=== PATIENT | female | born 1970 ===

== ENCOUNTER 2018-06-07 19:34 | Emergency (ER) | payer BC ==
[2018-06-07 19:57] VITALS: TEMP 98.2
--- NOTE | 2018-06-07 20:16 | ED PDOC ---
Arrival/HPI - History of Present Illness Narrative History of Present Illness (Text): 06/07/18 20:13 47 y/o female, pmh including htn and dm, nkda, c/o chronic pelvic pain for 1 month. Pt. was seen by the obgyn last week, no sonogram was performed and told the patient to see her own pmd. Pt. stated that her sonogram date is 06/13/2018, can't wait this long so she come to the ER, no pain medication taken at home, no vaginal bleeding or discharge, no night sweat, no dizziness, no change in vision, no other medical or psychological complaints. <Norm Martinez - Last Filed: 06/07/18 21:48> <Jorje Crowley - Last Filed: 06/08/18 05:44> - General Chief Complaint: Female Genitourinary Time Seen by Provider: 06/07/18 20:09 Past Medical History - Provider Review Nursing Documentation Reviewed: Yes - Cardiac Hx Cardiac Disorders: Yes Hx Hypertension: Yes - Pulmonary Hx Respiratory Disorders: No - Neurological Hx Neurological Disorder: Yes Hx Headaches: Yes - HEENT Hx HEENT Disorder: No - Renal Hx Renal Disorder: No - Endocrine/Metabolic Hx Endocrine Disorders: Yes Hx Diabetes Mellitus Type 2: Yes - Hematological/Oncological Hx Blood Disorders: Yes Hx Anemia: Yes - Integumentary Hx Dermatological Disorder: No - Musculoskeletal/Rheumatological Hx Musculoskeletal Disorders: Yes Hx Arthritis: Yes - Gastrointestinal Hx Gastrointestinal Disorders: Yes Hx Gastroesophageal Reflux: Yes - Genitourinary/Gynecological Hx Genitourinary Disorders: No - Psychiatric Hx Psychophysiologic Disorder: No Hx Substance Use: No - Surgical History Hx Section: Yes (x2) Other/Comment: fibroidectomy - Anesthesia Hx Anesthesia: Yes Hx Anesthesia Reactions: No Hx Malignant Hyperthermia: No <Norm Martinez - Last Filed: 06/07/18 21:48> Family/Social History - Physician Review Nursing Documentation Reviewed: Yes Family/Social History: Unknown Family HX Smoking Status: Never Smoked Hx Alcohol Use: No Hx Substance Use: No <Norm Martinez - Last Filed: 06/07/18 21:48> Allergies/Home Meds <Norm Martinez - Last Filed: 06/07/18 21:48> <Jorje Crowley - Last Filed: 06/08/18 05:44> Allergies/Adverse Reactions: Allergies No Known Allergies Allergy (Verified 06/07/18 19:46) Home Medications: Home Meds Medication Instructions Recorded Confirmed Sitagliptin Phos/Metformin HCl 50 - 1,000 mg PO BID 08/06/17 06/07/18 [Janumet 50-1,000 mg Tablet] Review of Systems - Review of Systems Constitutional: absent: Fatigue, Fevers Eyes: absent: Vision Changes ENT: absent: Hearing Changes Respiratory: absent: SOB, Cough Cardiovascular: absent: Chest Pain Gastrointestinal: absent: Abdominal Pain, Nausea, Vomiting Genitourinary Female: Other (pelvic pain) Skin: absent: Rash, Pruritis Neurological: absent: Headache, Dizziness Psychiatric: absent: Anxiety, Depression, Suicidal Ideation <Norm Martinez Q - Last Filed: 06/07/18 21:48> Physical Exam Vital Signs Reviewed: Yes Vital Signs Temp Pulse Resp BP Pulse Ox 06/07/18 19:49 98.2 F 102 H 16 135/86 98 Temperature: Afebrile Blood Pressure: Normal Pulse: Tachycardic Respiratory Rate: Normal Appearance: Positive for: Well-Appearing, Non-Toxic, Comfortable Pain Distress: Moderate Mental Status: Positive for: Alert and Oriented X 3 - Systems Exam Head: Present: Atraumatic, Normocephalic Pupils: Present: PERRL Extroacular Muscles: Present: EOMI Conjunctiva: Present: Normal Mouth: Present: Moist Mucous Membranes Neck: Present: Normal Range of Motion Respiratory/Chest: Present: Clear to Auscultation, Good Air Exchange. No: Respiratory Distress, Accessory Muscle Use Cardiovascular: Present: Regular Rate and Rhythm, Normal S1, S2. 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 No: Vaginal Discharge, Vaginal Bleeding, Vaginal Lesions, Adenexal Tenderness, Adenexal Mass, Cervical Motion Tendernes, Odor Back: Present: Normal Inspection Upper Extremity: Present: Normal Inspection. No: Cyanosis, Edema Lower Extremity: Present: Normal Inspection, NORMAL PULSES, Normal ROM, Neurovascularly Intact. No: Edema, Tenderness, Swelling, Deformity Neurological: Present: GCS=15, CN II-XII Intact, Speech Normal, Motor Func Grossly Intact, Gait Normal, Memory Normal Skin: Present: Warm, Dry, Normal Color. No: Rashes Lymphatic: No: Cervical Adenopathy Psychiatric: Present: Alert, Oriented x 3, Normal Insight, Normal Concentration <Norm Martinez - Last Filed: 06/07/18 21:48> Vital Signs Temp Pulse Resp BP Pulse Ox 06/07/18 19:49 98.2 F 102 H 16 135/86 98 <Jorje Crowley - Last Filed: 06/08/18 05:44> Medical Decision Making ED Course and Treatment: 06/07/18 20:16 -Labs/ua -Transvagina sonogram -Toradol -Observe and reassess 06/07/18 21:44 -Urine hcg is negative -labs show no acute findings -UA show no UTI but there is yeast, diflucan po ordered -Pain resolved. -All labs and radiology results discussed with the patient. -Discharge home with motrin, continue to follow up with your own pmd and obgyn about your DM/anemia and fibroids, return to the ER for any new or worsening signs or symptoms. - RAD Interpretation Radiology Orders: 06/07/18 20:10 TRANSVAGINAL [US] Stat TECHNIQUE: Transvaginal and transabdominal pelvic ultrasound (complete) with image documentation. FINDINGS: ENDOMETRIUM: Normal thickness 0.6cm UTERUS/CERVIX: The uterus measures 7.7 x 4.8 x 6.1 cm. There is a fibroid measuring 3.3 x 3.2 x 3.7 cm. RIGHT OVARY: Normal Doppler flow. No abnormal mass. LEFT OVARY: Normal Doppler flow. No abnormal mass. FREE FLUID: No free fluid. IMPRESSION: Uterine fibroid present. No adnexal mass or free fluid collection. 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 FINDINGS: ENDOMETRIUM: Normal thickness 0.6cm UTERUS/CERVIX: The uterus measures 7.7 x 4.8 x 6.1 cm. There is a fibroid measuring 3.3 x 3.2 x 3.7 cm. RIGHT OVARY: Normal Doppler flow. No abnormal mass. LEFT OVARY: Normal Doppler flow. No abnormal mass. FREE FLUID: No free fluid. IMPRESSION: Uterine fibroid present. No adnexal mass or free fluid collection. - Lab Interpretations Lab Results: 06/07/18 21:00 06/07/18 21:00 Lab Results 06/07/18 21:14: Urine Color Yellow, Urine Appearance Clear, Urine pH 6.0, Ur Specific [place] >= 1.030, Urine Protein Trace H, Urine Glucose (UA) 500 H, U rine Ketones 15 H, Urine Blood Trace-intact H, Urine Nitrate Negative, Urine Bilirubin Negative, Urine Urobilinogen 0.2, Ur Leukocyte Esterase Negative, Urine RBC Pending, Urine WBC Pending 06/07/18 21:00: WBC 10.9, RBC 4.51, Hgb 10.1 L, Hct 32.4 L, MCV 71.8 L, MCH 22.4 L, MCHC 31.2, RDW 16.8 H, Plt Count 455 H, MPV 9.3, Gran % 70.6 H, Lymph % (Aut o) 21.9 L, [place] % (Auto) 6.2 H, Eos % (Auto) 0.9 L, Baso % (Auto) 0.4, Gran # 7.68 H, Lymph # (Auto) 2.4, [place] # (Auto) 0.7 H, Eos # (Auto) 0.1, Baso # (Auto) 0.04 06/07/18 21:00: Sodium 137, Potassium 4.5, Chloride 100, Carbon Dioxide 28, Anion Gap 13, BUN 13, Creatinine 0.7, Est GFR ( Amer) > 60, Est GFR (Non- Af Amer) > 60, Random Glucose 228 H, Calcium 9.2, Total Bilirubin 0.2, AST 24, ALT 21, Alkaline Phosphatase 121, Total Protein 7.8, Albumin 4.2, Globulin 3.6, Albumin/Globulin Ratio 1.2 - RAD Interpretation Radiology Orders: 06/07/18 20:10 TRANSVAGINAL [US] Stat - Medication Orders Current Medication Orders: Discontinued Medications Ketorolac Tromethamine (Toradol) 30 mg IVP STAT STA Stop: 06/07/18 20:14 Last Admin: 06/07/18 21:04 Dose: 30 mg MAR Pain Assessment Document 06/07/18 21:04 ELLEN (Rec: 06/07/18 21:05 [facility] [id number]) Pain Reassessment Is this a pain reassessment? No Sleep Is patient sleeping during reassessment? No Presence of Pain Presence of Pain Yes Pain Scale Used Protocol: PSCALES Pain Scale Used Numeric Location Upper or Lower Lower Pain Location Body Site Abdomen Description Intensity of Pain at present 7 Pain Behavior Restlessness Facial Grimacing IVP Administration Document 06/07/18 21:04 ELLEN (Rec: 06/07/18 21:05 [facility] [id number]) Charges for Administration # of IVP Administrations 1 <Jorje Crowley - Last Filed: 06/08/18 05:44> - PA / METAL RIVETER / Resident Statement / has reviewed & agrees with the documentation as recorded. <Norm Martinez - Last Filed: 06/07/18 21:48> Disposition/Present on Arrival - Present on Arrival Any Indicators Present on Arrival: No History of DVT/PE: No History of Uncontrolled Diabetes: Yes Urinary Catheter: No History of Decub. Ulcer: No History Surgical Site Infection Following: None - Disposition Have Diagnosis and Disposition been Completed?: Yes Disposition Time: 21:46 Patient Plan: Discharge <Norm Martinez - Last Filed: 06/07/18 21:48> - Present on Arrival Any Indicators Present on Arrival: No - Disposition Have Diagnosis and Disposition been Completed?: Yes <Jorje Crowley - Last Filed: 06/08/18 05:44> - Disposition Diagnosis: Diabetes mellitus with hyperglycemia, Fibroid, Candidiasis Disposition: HOME/ ROUTINE Condition: GOOD Additional Instructions: -Discharge home with motrin, continue to follow up with your own pmd and obgyn about your DM/anemia and fibroids, return to the ER for any new or worsening signs or symptoms. Prescriptions: Ibuprofen [Motrin] 600 mg PO QID PRN #30 tab PRN Reason: Other Referrals: PCP,NO [Primary Care Provider] - Follow up with primary Sandro Mcgregor MD [Staff Provider] - Follow up with primary [facility] at [facility] [place] [Outside] - Follow up with primary Forms: [employer] ([place]ian), WORK NOTE
[2018-06-07 21:09] LABS: BASO # 0.04 K/mm3 (0.0-2.0); BASO % 0.4 % (0.0-3.0); EOS # 0.1 (0.0-0.7); EOS % 0.9 % (1.5-5.0); GRAN # 7.68 (1.4-6.5); GRAN % 70.6 % (50.0-68.0); HEMOGLOBIN 10.1 g/dL (12.0-16.0); LYMPH # 2.4 (1.2-3.4); LYMPH % 21.9 % (22.0-35.0); MEAN CELL VOLUME 71.8 fl (80.0-105.0); MEAN CORPUSCULAR HEMOGLOBIN 22.4 pg (25.0-35.0); MEAN CORPUSCULAR HGB CONC 31.2 g/dl (31.0-37.0); MEAN PLATELET VOLUME 9.3 fl (7.0-11.0); MONO # 0.7 (0.1-0.6); MONO % 6.2 % (1.0-6.0); RBC 4.51 10^6/uL (3.5-6.1); RED CELL DISTRIBUTION WIDTH 16.8 % (11.5-14.5); WHITE BLOOD COUNT 10.9 10^3/ul (4.5-11.0)
[2018-06-07 21:16] LABS: ALB/GLOB RATIO 1.2 (1.1-1.8); ALBUMIN 4.2 g/dL (3.0-4.8); ALT/SGPT 21 U/L (7-56); AST/SGOT 24 U/L (14-36); BLOOD UREA NITROGEN 13 mg/dL (7-21); CALCIUM 9.2 mg/dL (8.4-10.5); GFR NON-AFRICAN AMERICAN > 60
[2018-06-07 21:22] LABS: URINE BILIRUBIN NEGATIVE (NEGATIVE); URINE BLOOD TRACE-INTACT (NEGATIVE); URINE GLUCOSE (UA) 500 mg/dL (NEGATIVE); URINE LEUKOCYTE ESTERASE NEGATIVE Leu/uL (NEGATIVE); URINE PROTEIN TRACE mg/dL (<30 mg/dL); URINE UROBILINOGEN 0.2 E.U./dL (<1 E.U./dL)
[2018-06-07 21:24] LABS: URINE APPEARANCE CLEAR (CLEAR); URINE COLOR YELLOW (YELLOW)
[2018-06-07 21:45] LABS: URINE AMORPHOUS SEDIMENT FEW; URINE BACTERIA MANY (NEG); URINE WBC 0 - 2 /hpf (0-6)
[2018-06-07 22:17] VITALS: BP 128/82; PULSE 84; RESP 18; O2SAT 99
--- NOTE | 2018-06-08 09:14 | US ---
Date of service: 06/07/2018 HISTORY: Chronic discomfort. LMP 05/02/2018. COMPARISON: None available. TECHNIQUE: Transvaginal only. Real -time technique with 2D, duplex and color Doppler FINDINGS: UTERUS: Measures 4.8 x 6.1 x 7.7 cm. Normal in size, heterogeneous echo characteristics. Location of fibroid and size: Posterior sub serosal midline 3.2 x 3.3 x 3.7 cm. ENDOMETRIUM: Measures 6.1 mm in diameter. Unremarkable. CERVIX: No cervical abnormality identified. RIGHT OVARY: Measures 1.2 x 1.7 x 1.9 cm. No solid mass. Normal flow. LEFT OVARY: Measures 2.2 x 2.2 x 2.0 cm. No solid mass. Normal flow. FREE FLUID: No significant free fluid noted. OTHER FINDINGS: None. IMPRESSION: Solitary uterine fibroid. No acute findings. Concordant results (preliminary interpretation) provided by [facility]. Procedure Completed: 20:35 Preliminary Report: Dictated and Authenticated: 21:02 Final Interpretation: 21:02. June 08, 2018
== END 2018-06-07 22:15 | disposition home or self-care (01) ==
LOC: ED 19:34
DX: E11.65 Type 2 diabetes mellitus with hyperglycemia (principal); D25.9 Leiomyoma of uterus, unspecified; B37.9 Candidiasis, unspecified; I10 Essential (primary) hypertension
CPT/HCPCS: 76830; 80053; 81001; 85025; 96374; 99284; J1885